=== PATIENT | female | born 1990 | race American Indian/Alaskan Native ===

== ENCOUNTER 2019-04-23 23:28 | Inpatient (IN) | payer MEDICAID, OTHER ==
[2019-04-24] MEDS ORDERED: MILK OF MAGNESIA PO PRN (00:01)
[2019-04-24] MEDS ORDERED: COLACE PO PRN (00:01)
--- NOTE | 2019-04-24 01:57 | Ultrasound Report ---
PROCEDURE: US OB >= 14 WEEKS FETUS TECHNIQUE: Real-time limited sonographic examination was performed for evaluation of amniotic fluid for each fetus with image documentation (1 or more fetuses). HISTORY: Fluid leak R/o Rupture of membranes COMPARISONS: None . FINDINGS: MATERNAL Uterus: Within normal limits . FETUS IUP: Single living intrauterine . Position: Vertex . Placental position: Left lateral, without previa . Amniotic fluid volume: Significantly diminished amniotic fluid with only 1 cm measured. Heart rate and rhythm: 143 BPM, Regular . anatomic survey: Not performed on this study . MEASUREMENTS BPD: 4.6 cm . HC: 16.2 cm . AC: 14.6 cm . FL: 3.2 cm . Mean Gestational Age (composite criteria): 19 weeks 5 days . Ratio biometry: Normal . Estimated Weight: 318 grams Estimated Due Date (earliest scan): 09/13/2019 . IMPRESSION: 1. Single living intrauterine gestation at approximately 19 weeks 5 days . 2. EDC by US 09/13/2019 . 3. There is significantly diminished amniotic fluid, only one 1 cm pocket identified on this study. This document is electronically signed by Fern Reed DO., Apr 24 2019 01:54:57 AM ET
[2019-04-24 02:14] LABS: Basophils # (Auto) 0.1 K/mm3 (0.0-0.1); Basophils % (Auto) 0.4 % (0.0-1.8); Eosinophils # (Auto) 0.4 K/mm3 (0.0-0.4); Eosinophils % (Auto) 3.2 % (0.0-4.3); Hematocrit 33.3 % (30.3-42.9); Hemoglobin 11.3 gm/dl (10.1-14.3); Lymphocytes # (Auto) 1.6 K/mm3 (1.2-5.4); Lymphocytes % (Auto) 13.6 % (13.4-35.0); Mean Corpuscular HGB Conc 34 % (30-34); Mean Corpuscular Volume 102 fl (79-97); Monocytes # (Auto) 1.1 K/mm3 (0.0-0.8); Monocytes % (Auto) 9.5 % (0.0-7.3); Platelet Count 173 K/mm3 (140-440); Red Blood Count 3.26 M/mm3 (3.65-5.03)
[2019-04-24 02:36] LABS: Alanine Aminotransferase 10 units/L (7-56); Albumin 3.4 g/dL (3.9-5); BUN/Creatinine Ratio 10; Blood Urea Nitrogen 5 mg/dL (7-17); Calcium 8.9 mg/dL (8.4-10.2); Hemolysis Index 12
--- NOTE | 2019-04-24 07:41 | History and Physical Report ---
History of Present Illness Date of examination: 04/24/19 Date of admission: 04/23/19 23:28 History of present illness: This is a 29-year-old black female who was receiving care in [place], presented to emergency room with complaints of bag of water rupturing. Ruptured membranes were confirmed on exam. Patient states her working EDC is 09/07/2019 making her 20 weeks and 4 days. 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 denies: abnormal PAP smear Family/Genetic History: diabetes, hypertension Social history: single, full code. denies: smoking, alcohol abuse - Obstetrical History Expected Date of Delivery: 09/07/19 Actual Gestation: 20 Week(s) 4 Day(s) : 3 Para: 0 Hx # Term Pregnancies: 0 Number of Pregnancies: 0 Spontaneous Abortions: 1 Induced : 1 Number of Living Children: 0 Medications and Allergies Allergies Allergy/AdvReac Type Severity Reaction Status Date / Time No Known Allergies Allergy Verified 04/24/19 01:42 Active Meds: Active Medications Acetaminophen (Tylenol) 650 mg PO Q4H PRN PRN Reason: Pain MILD(1-3)/Fever >100.5/MCKEON Docusate Sodium (Colace) 100 mg PO Q12H PRN PRN Reason: Constipation Lactated Ringer's (Lactated Ringers) 1,000 mls @ 125 mls/hr IV DIRECT LUBNA Magnesium Hydroxide (Milk Of Magnesia) 30 ml PO QHS PRN PRN Reason: Laxative Effect Multivitamins/Iron/Calcium ( Vitamin) 1 each PO QDAY LUBNA Review of Systems All systems: negative - Vital Signs Vital signs: Vital Signs Temp Pulse Resp BP 98.7 F 85 16 92/51 04/24/19 03:40 04/24/19 03:40 04/24/19 03:40 04/24/19 03:40 Temp Pulse Resp BP Pulse Ox 98.7 F 85 16 92/51 04/24/19 06:28 04/24/19 03:40 04/24/19 03:40 04/24/19 03:40 - Physical Exam Breasts: Positive: deferred Cardiovascular: Regular rate Abdomen: Positive: normal appearance Results Result Diagrams: 04/24/19 01:49 04/24/19 01:49 Abnormal lab results 04/24/19 04/24/19 Range/Units 01:49 01:49 WBC 12.0 H (4.5-11.0) K/mm3 RBC 3.26 L (3.65-5.03) M/mm3 MCV 102 H (79-97) fl MCH 35 H (28-32) pg RDW 13.0 L (13.2-15.2) % [place] % (Auto) 9.5 H (0.0-7.3) % [place] # 1.1 H (0.0-0.8) K/mm3 Seg Neutrophils % 73.3 H (40.0-70.0) % Seg Neutrophils # 8.8 H (1.8-7.7) K/mm3 BUN 5 L (7-17) mg/dL Creatinine 0.5 L (0.7-1.2) mg/dL Albumin 3.4 L (3.9-5) g/dL All other labs normal. Assessment and Plan - Patient Problems (1) premature rupture of membranes Current Visit: Yes Status: Acute Qualifiers: PROM onset of labor timing: unspecified duration between rupture of membranes and onset of labor Qualified Code(s): O42.919 - premature rupture of membranes, unspecified as to length of time between rupture and onset of labor, unspecified trimester Plan to address problem: Patient without contraction nausea vomiting fever or chills. Discussed with the patient the very poor prognosis with ruptured membranes at this gestational age. Explain non-viability at this gestational age. Discussed the risks of infection. Patient is understandably upset. QUESTIONS ANSWERED. Will continue observation for now. Discussed with the patient and indication for delivery if she become infected. (2) 20 weeks gestation of Current Visit: Yes Status: Acute
[2019-04-24] MEDS: LACTATED RINGERS 1,000 ML IV SCH ×2 (08:38→17:42)
[2019-04-24] MEDS: PRENATAL VITAMIN PO SCH (08:38)
[2019-04-24] MEDS: TYLENOL PO PRN (11:15)
[2019-04-25] MEDS: LACTATED RINGERS 1,000 ML IV SCH ×2 (09:28→20:08)
[2019-04-25] MEDS: PRENATAL VITAMIN PO SCH (09:39)
--- NOTE | 2019-04-25 11:27 | Progress Note ---
Assessment and Plan - Patient Problems (1) 20 weeks gestation of Current Visit: Yes Status: Acute (2) premature rupture of membranes Current Visit: Yes Status: Acute Qualifiers: PROM onset of labor timing: unspecified duration between rupture of membranes and onset of labor Qualified Code(s): O42.919 - premature rupture of membranes, unspecified as to length of time between rupture and onset of labor, unspecified trimester Plan to address problem: -will start ampicillin at this time (3) Prolonged rupture of membranes Current Visit: Yes Status: Acute Plan to address problem: - will start ampicillin at this time. -currently AFVSS no s/sx of chorio -took several minutes discussing with pt that if she develops s/sx of chorio delivery is recommended not matter the gestational age as failure to do so could result in maternal sepsis or hysterectomy due to infection in the uterus. She expressed understanding and questions were addressed and answered. Subjective - Subjective Date of service: 04/25/19 Principal diagnosis: 20 5/7 with PPROM Interval history: Pt denies any fevers, abdominal pain or chills. BERNADETTE today is 1.8cm and was <1.0cm on yesterday on admission. I again as on yesterday d/w the poor prognosis. She inquired about antibx and when they would be started. I advised that they can be started at 20 wks but usually is started after 24 wks as per ACOG guideline/ recommendations. She request they be started. I d/w pt outpt management as an option. She states " I live in [place] and don't feel comfortable with going home because I know I won't be able to get back her." I d/w continued inpt stay and that she can be started on antibx. She is also requesting a repeat sono in the am. Again I advised I can be ordered but will not likely change the prognosis. D/w the importance of adequate fluid levels for the development of limbs as well as lung development. She expressed understanding and numerous other questions were addressed and answered. Patient reports: loss of fluid (states she feels less coming out at this time than on admission. pelvic was deferred as she has no c/o bleeding or pain) Objective - Vital Signs Vital Signs: Vital Signs - 12hr 04/25/19 04/25/19 04/25/19 05:02 05:04 05:06 Temperature 97.7 F Pulse Rate 84 83 83 Respiratory 16 Rate Blood Pressure 81/43 81/47 Blood Pressure 81/47 [Right] 04/25/19 04/25/19 06:05 09:13 Temperature 98.8 F Pulse Rate 80 88 Respiratory 16 Rate Blood Pressure 89/51 111/66 Blood Pressure [Right] - Exam Lungs: Normal air movement Abdomen: Present: normal appearance, soft. Absent: distention, tenderness, guarding FHR: other (FHR normal on doppler and sono today) - Labs Labs: Abnormal Labs 04/24/19 04/24/19 01:49 01:49 WBC 12.0 H RBC 3.26 L MCV 102 H MCH 35 H RDW 13.0 L [place] % (Auto) 9.5 H [place] # 1.1 H Seg Neutrophils % 73.3 H Seg Neutrophils # 8.8 H BUN 5 L Creatinine 0.5 L Albumin 3.4 L
[2019-04-25] MEDS: AMPICILLIN/NS 2 GM/100 ML 2 GM/100 ML BAG IV SCH ×2 (12:29→18:30)
[2019-04-25] MEDS: TYLENOL PO PRN (18:29)
--- NOTE | 2019-04-25 23:40 | Ultrasound Report ---
EXAM: US OB LIMITED HISTORY: rupture of membranes TECHNIQUE: Transabdominal obstetric sonogram was performed. COMPARISON: 04/24/2019 FINDINGS: Single live intrauterine with heart rate of 126 bpm is in cephalic presentation. There is oligohydramnios with BERNADETTE of 1.8 cm. BERNADETTE on prior exam was measured at less than 1 cm. IMPRESSION: Oligohydramnios with BERNADETTE of 1.8 cm. This document is electronically signed by Nura Weathers MD., Apr 25 2019 11:38:47 PM ET
[2019-04-26] MEDS: AMPICILLIN/NS 2 GM/100 ML 2 GM/100 ML BAG IV SCH ×3 (00:17→12:35)
[2019-04-26] MEDS: LACTATED RINGERS 1,000 ML IV SCH ×2 (04:40→12:36)
[2019-04-26] MEDS: PRENATAL VITAMIN PO SCH (09:22)
--- NOTE | 2019-04-26 09:46 | Ultrasound Report ---
ULTRASOUND OB LIMITED History: Ruptured membranes Technique: Transabdominal ultrasound with Doppler interrogation. Gestation: Single Position: Cephalic Amniotic Fluid: Decreased BERNADETTE = 2.8 cm Heart Rate: 1.5 BPM
--- NOTE | 2019-04-26 11:48 | Progress Note ---
Assessment and Plan - Patient Problems (1) premature rupture of membranes Current Visit: Yes Status: Acute Qualifiers: PROM onset of labor timing: unspecified duration between rupture of membranes and onset of labor Qualified Code(s): O42.919 - premature rupture of membranes, unspecified as to length of time between rupture and onset of labor, unspecified trimester Plan to address problem: Again discussed with the patient known viability of fetus at this age and her poor prognosis. Questions answered. Patient desires continued expectant management declines any induction of labor but does understand that induction of labor be indicated for signs of infection and no tocolytics will be administered if the patient spontaneously goes in labor (2) 20 weeks gestation of Current Visit: Yes Status: Acute Subjective Date of service: 04/26/19 Principal diagnosis: 20 04/06 with PPROM Interval history: Patient still complains of leaking fluid. Patient denies any fever chills nausea vomiting Objective - Constitutional Vitals: Vital Signs - 12hr 04/26/19 09:00 Temperature 98.0 F General appearance: Present: no acute distress - Respiratory Respiratory effort: normal - Breasts Breasts: deferred - Cardiovascular Rhythm: regular Extremities: no ischemia - Gastrointestinal General gastrointestinal: Present: soft, non-tender - Genitourinary Female genitourinary: deferred - Integumentary Integumentary: clear, warm, dry - Labs CBC & Chem 7: 04/24/19 01:49 04/24/19 01:49 Medications & Allergies - Medications Allergies/Adverse Reactions: Allergies No Known Allergies Allergy (Verified 04/24/19 01:42) Home Medications: Home Medications Medication Instructions Recorded Confirmed Last Taken Type No Known Home Medications [No 04/24/19 04/24/19 Unknown History Reported Home Medications] Active Medications: Generic Name Dose Route Start Last Admin Trade Name Freq PRN Reason Stop Dose Admin Acetaminophen 650 mg 04/24/19 00:01 04/25/19 18:29 Tylenol PO 650 mg Q4H PRN Administration Pain MILD(1-3)/Fever >100.5/MCKEON Docusate Sodium 100 mg 04/24/19 00:01 Colace PO Q12H PRN Constipation Lactated Ringer's 1,000 mls @ 125 mls/hr 04/24/19 01:00 04/26/19 04:40 Lactated Ringers IV 125 mls/hr DIRECT LUBNA Administration Ampicillin Sodium 2 gm in 100 mls @ 100 mls/hr 04/25/19 12:00 04/26/19 06:22 Polycillin/Ns 2 Gm/100 Ml IV 04/27/19 06:59 100 mls/hr Q6HR LUBNA Administration Magnesium Hydroxide 30 ml 04/24/19 00:01 Milk Of Magnesia PO QHS PRN Laxative Effect Multivitamins/Iron/Calcium 1 each 04/24/19 10:00 04/26/19 09:22 Vitamin PO 1 each QDAY LUBNA Administration
[2019-04-26 12:34] VITALS: BP 107/61
--- NOTE | 2019-04-26 15:38 | Discharge Summary ---
Providers - Providers Date of Admission: 04/23/19 23:28 Date of discharge: 04/26/19 Attending physician: MARCI PATEL Neonatology consult Primary care physician: CHUY AUGUSTIN MD Hospitalization Reason for admission: IUP - , rupture of membranes Discharge diagnosis: other ( premature rupture of membranes at 20 weeks gestation) Hospital course: See H&P for details. Patient will be admitted was inspected management for premature rupture of membranes on the viable gestational age. Patient was afebrile throughout her stay continued to leak fluid throughout her stay and had several conversations with providers about the poor prognosis. Patient via phone told that she had been reading on the Internet about infants surviving delivered at 19 weeks. Discussed with the patient unsure viability stories and in the probability of a surviving infant delivered at 19 weeks. Patient is noted nurses note stated she wanted transfer of care because she believes that survival was possible at this gestational age and she delivers. The patient have a consultation with the director of midwifery/staff midwife who did come to speak to her about viability and gestational age. Patient states that a friend of hers told her that she would be better off at [facility] because of their intensive care nursery. Positive ablation would be willing to transfer if she had an accepting physician. Patient desired discharge was called by nurse to help with her discharge. Infection and labor precautions were given. Condition at discharge: Stable Disposition: [id number] TO HOME OR SELFCARE - Discharge Diagnoses (1) premature rupture of membranes Status: Acute Qualifiers: PROM onset of labor timing: unspecified duration between rupture of membranes and onset of labor Qualified Code(s): O42.919 - premature rupture of membranes, unspecified as to length of time between rupture and onset of labor, unspecified trimester (2) 20 weeks gestation of Status: Acute Plan - Provider Discharge Summary Diet: routine Additional instructions: [] Smoking cessation referral if applicable(refer to patient education folder for contact #) [] Refer to [facility] Booklet Call your doctor immediately for: * Fever > 100.5 * Heavy vaginal bleeding ( >1 pad per hour) * Severe persistent headache * Shortness of breath * Reddened, hot, painful area to leg or breast * - Follow up plan Follow up: PRIMARY CARE, [Primary Care Provider] - 7 Days Forms: [facility] Discharge Summary
== END 2019-04-26 15:45 | disposition home or self-care (01) | DRG 782 ==
LOC: LD 23:28
PROVIDERS: ADMIT Obstetrics & Gynecology; ATTEND Obstetrics & Gynecology
DX: O42.912 Preterm premature rupture of membranes, unspecified as to length of time between rupture and onset of labor, second trimester (principal); Z83.3 Family history of diabetes mellitus; Z82.49 Family history of ischemic heart disease and other diseases of the circulatory system; Z3A.20 20 weeks gestation of pregnancy
CPT/HCPCS: 36415; 76805; 76815; 80053; 85025; 86850; 86900; 86901; G0378; J0290; J7120